=== PATIENT | female | born 1980 | race Caucasian/White ===

== ENCOUNTER 2018-06-05 07:28 | Day surgery (SDC) | payer OTHER ==
[~2018-06-05] VITALS: Ht 162.6 cm; Wt 70.3 kg
[2018-06-05 08:12] VITALS: BP 136/90
[2018-06-05 15:34] VITALS: BP 120/82
== END 2018-06-05 12:59 | disposition home or self-care (01) ==
LOC: DS 07:28 → OR 10:00 → DS 12:59
PROVIDERS: Obstetrics & Gynecology
PROC: 0UDB7ZZ Extraction of Endometrium, Via Natural or Artificial Opening (ICD-10-PCS; 2018-06-05)
PROC: 0UBC7ZX Excision of Cervix, Via Natural or Artificial Opening, Diagnostic (ICD-10-PCS; principal; 2018-06-05 10:00)
DX: N87.1 Moderate cervical dysplasia (principal)
CPT/HCPCS: C1758; J0690; J2405; J2704; J3010